=== PATIENT | female | born 1940 | race Caucasian/White ===

== ENCOUNTER 2018-07-29 10:51 | Observation (INO) ==
[2018-07-29 12:05] LABS: Basophils % 0.3 % (0.0-0.8); Eosinophils # 0.1 10*3/uL (0.0-0.87); Eosinophils % 1.5 % (0.00-10.9); Hematocrit 36.6 VOL% (35.7-47.0); Hemoglobin 12.1 GM/DL (12.0-16.0); Immature Granulocytes % 0.3 %; Immature Granulocytes Absolute 0.02 #; Lymphocytes # 0.8 10*3/uL (1.4-4.0); Lymphocytes % 12.6 % (21.3-54.2); Mean Corpuscular HGB Conc 33.1 GM/DL (32-36); Mean Corpuscular Hemoglobin 31 PG (27-34); Mean Corpuscular Volume 93.6 FL (87-102); Mean Platelet Volume 9.9 FL (9.6-12.0); Monocytes # 0.4 10*3/uL (0.11-0.8); Monocytes % 6.3 % (1.7-12.7); Neutrophils # 5.2 10*3/uL (1.4-7.4); Platelet Count 230 T/CUMM (130-400); Red Blood Count 3.91 MC/CUMM (3.8-5.5); White Blood Count 6.5 T/CUMM (4-12)
[2018-07-29 12:26] LABS: Albumin 3.7 G/DL (3.4-5.0); Bilirubin,Total 0.4 MG/DL (0.2-1.0); Calcium 8.8 MG/DL (8.5-10.1); Osmolality,Calculated 285.4 MOS/KG (273-304); Total Protein 7.4 G/DL (6.4-8.3)
[2018-07-29 12:30] LABS: Apearance,Urine CLEAR (Clear); Bilirubin,Urine Negative (Negative); Blood, Urine Negative (Negative); Glucose,Urine (UA) 150 mg/dL (Negative); Ketones,Urine Negative (Negative); Mucus,Urine Occasional /LPF (Occasional); Nitrite,Urine Negative (Negative); Protein,Urine >=500 MG/DL; RBC,Urine <1 /HPF (0-4); Urine Color Straw (Yellow); Urine Specific Gravity 1.011 (1.001-1.035); Urine Urobilinogen < 2.0 EU/DL (0.2-1.0); WBC,Urine 1 /HPF (0-6)
[2018-07-29] MEDS: DEXTROSE 5% NACL 0.45% 1,000 ML IV SCH ×2 (13:01→21:31)
[2018-07-29] MEDS ORDERED: ACETAMINOPHEN 325 MG TABLET PO PRN (13:10)
[2018-07-29] MEDS ORDERED: PROMETHAZINE 25 MG/1 ML VIAL IM PRN (13:10)
[2018-07-29] MEDS ORDERED: ONDANSETRON 4 MG/2 ML VIAL IV PRN (13:10)
[2018-07-29] MEDS ORDERED: hydrALAZINE 20 MG/1 ML VIAL IV PRN (13:28)
[2018-07-29] MEDS ORDERED: ENOXAPARIN 40 MG/0.4 ML SYRINGE SUBCUT SCH (13:30)
[2018-07-29] MEDS ORDERED: GLUCAGON 1 MG VIAL IM PRN (13:33)
[2018-07-29] MEDS ORDERED: DEXTROSE 50% 25 GM/50 ML VIAL IV PRN (13:33)
[2018-07-29 13:44] LABS: Thyroid Stimulating Hormone 0.934 uIU/ml (0.358-3.74)
[2018-07-29 13:46] LABS: Protein/Creatinine Ratio,Urine 8.4 RATIO
[2018-07-29] MEDS ORDERED: INSULIN REGULAR 100 UNIT/ML SUBCUT SCH (16:30)
[2018-07-29] MEDS ORDERED: FUROSEMIDE 20 MG TABLET PO PRN (16:34)
[2018-07-29] MEDS ORDERED: LORazepam 1 MG TABLET PO PRN (16:34)
[2018-07-29] MEDS: INSULIN REGULAR 100 UNIT/ML SUBCUT SCH (21:25)
[2018-07-29] MEDS: CARVEDILOL 6.25 MG TABLET PO SCH (21:26)
[2018-07-29] MEDS: GABAPENTIN 300 MG CAPSULE PO SCH (21:26)
[2018-07-29] MEDS: SIMVASTATIN 40 MG TABLET PO SCH (21:26)
[2018-07-30] MEDS: INSULIN REGULAR 100 UNIT/ML SUBCUT SCH ×6 (01:53→20:39)
[2018-07-30 05:09] LABS: Basophils % 0.5 % (0.0-0.8); Eosinophils # 0.3 10*3/uL (0.0-0.87); Eosinophils % 4.2 % (0.00-10.9); Hematocrit 33.6 VOL% (35.7-47.0); Hemoglobin 10.7 GM/DL (12.0-16.0); Immature Granulocytes % 0.3 %; Immature Granulocytes Absolute 0.02 #; Lymphocytes # 2.1 10*3/uL (1.4-4.0); Lymphocytes % 34.1 % (21.3-54.2); Mean Corpuscular HGB Conc 31.8 GM/DL (32-36); Mean Corpuscular Hemoglobin 30 PG (27-34); Mean Corpuscular Volume 94.9 FL (87-102); Mean Platelet Volume 10.8 FL (9.6-12.0); Monocytes # 0.6 10*3/uL (0.11-0.8); Monocytes % 9.1 % (1.7-12.7); Neutrophils # 3.2 10*3/uL (1.4-7.4); Neutrophils % 51.8 % (38.7-73.9); Platelet Count 216 T/CUMM (130-400); Red Blood Count 3.54 MC/CUMM (3.8-5.5); Red Cell Distribution Width 13.3 % (9.3-17.3); White Blood Count 6.2 T/CUMM (4-12)
[2018-07-30 05:32] LABS: Albumin 3.1 G/DL (3.4-5.0); Bilirubin,Total 0.7 MG/DL (0.2-1.0); Calcium 8.4 MG/DL (8.5-10.1); Osmolality,Calculated 280.5 MOS/KG (273-304); Potassium 3.9 MMOL/L (3.5-5.1); Risk Ratio 4.44; Total Protein 6.4 G/DL (6.4-8.3); VLDL CHOLESTEROL 77.6 MG/DL
[2018-07-30] MEDS: CARVEDILOL 6.25 MG TABLET PO SCH ×2 (09:38→20:20)
[2018-07-30] MEDS: CITALOPRAM 20 MG TABLET PO SCH (09:38)
[2018-07-30] MEDS: GABAPENTIN 300 MG CAPSULE PO SCH ×3 (09:38→20:19)
[2018-07-30] MEDS: PANTOPRAZOLE 40 MG TABLET PO SCH (09:38)
[2018-07-30 19:45] LABS: Total Volume,Urine 900 ML (400-2000)
[2018-07-30 19:46] LABS: Collection Time,Urine 24 HOURS
[2018-07-30 19:56] LABS: Total Protein 24 Hr Ur Result 1863 MG/24HR (0-149.1)
[2018-07-30 20:00] LABS: Creatinine 24 Hr Urine Result 0.47 G/24HR (0.60-1.80)
[2018-07-30] MEDS: SIMVASTATIN 40 MG TABLET PO SCH (20:20)
[2018-07-30] MEDS ORDERED: DEXTROSE 5% NACL 0.45% 1,000 ML IV SCH (21:00)
[2018-07-31] MEDS: INSULIN REGULAR 100 UNIT/ML SUBCUT SCH ×5 (00:50→15:32)
[2018-07-31] MEDS ORDERED: LIDOCAINE 100 MG/5 ML SYRINGE ONE (09:00)
[2018-07-31] MEDS ORDERED: PROPOFOL 200 MG/20 ML VIAL IV ONE (09:00)
[2018-07-31] MEDS: CITALOPRAM 20 MG TABLET PO SCH (11:48)
[2018-07-31] MEDS: GABAPENTIN 300 MG CAPSULE PO SCH ×2 (11:48→15:31)
[2018-07-31] MEDS: PANTOPRAZOLE 40 MG TABLET PO SCH (11:48)
[2018-07-31] MEDS: CARVEDILOL 6.25 MG TABLET PO SCH (11:49)
[2018-07-31 13:52] VITALS: BP 155/72
== END 2018-07-31 15:40 | disposition home health service (06) ==
LOC: EDUNIT# → EDBD → N.EDINP 10:51 → N.ED 10:51 → SUATTDRO 13:10 → N.4E 15:53
PROVIDERS: ADMIT Internal Medicine; ATTEND Family Medicine